=== PATIENT | female | born 2000 | race Caucasian/White ===

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

== ENCOUNTER 2019-10-31 11:14 | Emergency (ER) | payer OTHER ==
[~2019-10-31] VITALS: Ht 162.5 cm; Wt 61.3 kg
[2019-10-31 11:17] VITALS: BP 124/71
--- NOTE | 2019-10-31 11:17 | NUR ---
IRRIGATION OF R EAR BY Emmanuel SCHAFER APRN WITH WARM WATER AND SYRINGE. LG AMOUT OF EAR WAX RETURNED
--- OUTSIDE RECORDS SUMMARY | 2019-10-31 11:18 | XMS REPORT | Continuity of Care Document ---
Author Author [facility] Organization [employer] Address Unknown Phone Unavailable Allergies There is no data. Medications There is no data. 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 Results There is no data. Encounters ACCT No. Visit Date/Time Discharge Status Pt. Type Provider Facility Loc./Unit Complaint [id number] 12/23/2018 12:12:00 019 23:59:59 CLS Outpatient LEONARDO MEJIA MD [facility] RAD OSTEOMALACIA RT FOOT/PA IN OF LT KNEE [id number] 10/31/2019 11:15:[address] Emergency ABHI LOZANO MD [facility] ER L EAR PAIN
[2019-10-31] MEDS ORDERED: AMOX500T2 PO (11:32)
--- NOTE | 2019-10-31 11:33 | ED EENT ---
History of Present Illness General Chief Complaint: Ear Problems Stated Complaint: L EAR PAIN Source: patient Exam Limitations: no limitations History of Present Illness Date Seen by Provider: Oct 31, 2019 Time Seen by Provider: 11:29 Initial Comments Left ear fullness, discomfort, difficulty hearing for the past few days. Timing/Duration: gradual Severity: moderate Location: ear (L) Prearrival Treatment: no prearrival treatment Associated Symptoms: denies symptoms Allergies and Home Medications Patient Home Medication List Home Medication List Reviewed: Yes Review of Systems Review of Systems Constitutional: see HPI Eyes: No Symptoms Reported Ears: See HPI Nose: no symptoms reported Mouth: no symptoms reported Throat: no symptoms reported Respiratory: no symptoms reported Cardiovascular: no symptoms reported Musculoskeletal: no symptoms reported Skin: no symptoms reported Neurological: No Symptoms Reported Hematologic/Lymphatic: No Symptoms Reported Past [id number] Hx Patient Social History Recent Foreign Travel: No Contact w/Someone Who Travel: No Physical Exam Height, Weight, BMI Height: '" Weight: lbs. oz. kg; BMI Method: General Appearance: WD/WN, no apparent distress Eyes: bilateral eye normal inspection, bilateral eye PERRL, bilateral eye EOMI Ears: right ear TM normal; left ear TM red, left ear other (there is a cerumen impaction in the left ear canal. This was irrigated out using a 10 mm syringe attached to a 20-gauge IV catheter using warm 50-50 mixture of water/hydrogen peroxide); bilateral ear auricle normal Mouth/Throat: normal mouth inspection, pharynx normal Neck: non-tender, full range of motion Respiratory: no respiratory distress, no accessory muscle use Neurologic/Psychiatric: alert, normal mood/affect, oriented x 3 Skin: normal color, warm/dry Departure Impression Primary Impression: Impacted cerumen Qualified Codes: H61.22 - Impacted cerumen, left ear Additional Impression: Otitis media Qualified Codes: H66.002 - Acute suppurative otitis media without spontaneous rupture of ear drum, left ear Disposition: 01 HOME, SELF-CARE Condition: Stable Departure-Patient Inst. Decision time for Depature: 11:30 Referrals: SERA BOATENG MD (PCP/Family) Primary Care Physician Patient Instructions: Ear Wax Impaction (DC) Add. Discharge Instructions: 1. Tylenol for pain control 2. Antibiotics as directed. Follow-up with your doctor next week All discharge instructions reviewed with patient and/or family. Voiced understanding. Scripts Amoxicillin (Amoxicillin) 500 Mg Tablet 500 MG PO TID, #14 TAB Prov: RICHY SCHAFER APRN 10/31/19 RICHY SCHAFER APRN Oct 31, 2019 11:33
== END 2019-10-31 11:39 | disposition home or self-care (01) ==
LOC: EDUNIT# 11:14 → ER 11:15
DX: H61.22 Impacted cerumen, left ear (principal); H66.92 Otitis media, unspecified, left ear
CPT/HCPCS: 99282

== ENCOUNTER → 2020-07-05 | Outpatient (CLI) | payer OTHER ==
[~2020-07-05] MED LIST: AMOX500T2 PO
--- NOTE | 2020-07-05 13:00 | Diagnostic Imaging Report ---
EXAMINATION: Left foot radiographs, 3 weightbearing views. COMPARISON: None. HISTORY: 19-year-old female, left foot pain. FINDINGS: There is pes cavus with a calcaneal pitch angle of 32 degrees. There is no identified acute fracture. The joint spaces are well preserved. There is no identified radiopaque foreign body. There is no periosteal reaction. There is no tibiotalar joint effusion. There is flexion at the second proximal interphalangeal joint. IMPRESSION: 1. Pes cavus with calcaneal pitch angle of 32 degrees. 2. Flexion at the second proximal interphalangeal joint. 3. Additional radiographic evaluation of the left foot is unremarkable. Dictated by: Dictated on workstation # [id number]
== END ==
LOC: RAD 10:35
PROVIDERS: ATTEND Orthopaedic Surgery
DX: M79.672 Pain in left foot (principal)
CPT/HCPCS: 73630

== ENCOUNTER → 2022-06-21 | Outpatient (CLI) | payer OTHER ==
--- NOTE | 2022-06-21 13:17 | Diagnostic Imaging Report ---
INDICATION: Sprain of ligament, pain. COMPARISON: None available. TECHNIQUE: Four radiographs of the right tibia and fibula dated 06/21/2022. FINDINGS: 4.7 x 1.9 cm region of sclerosis is noted involving the proximal tibia underlying the tibial spine extending medially. This appears to extend to the articular surface of the tibial plateau. This demonstrates slightly irregular margins. No associated periosteal reaction. No acute fracture or dislocation. No abnormal lytic lesion. No knee joint effusion. No suspicious radiopaque foreign body. No evidence of tarsal coalition. IMPRESSION: Abnormal sclerotic lesion involving the proximal tibia as described above. This is of uncertain etiology. This could relate to postsurgical sclerosis if patient has had surgery at this location. Additional etiologies including bone infarction, bone island, or even potential malignancy should be considered. Recommend clinical correlation. If prior imaging is available for comparison, that would be beneficial. A nuclear medicine bone scan could be performed to evaluate for abnormal osteoblastic activity at this location or elsewhere within the osseous structures. No acute fracture or dislocation. Dictated by: Dictated on workstation # [id number]
== END ==
LOC: RAD FS 09:59
PROVIDERS: ATTEND Nurse Practitioner
DX: M76.811 Anterior tibial syndrome, right leg (principal); S93.491A Sprain of other ligament of right ankle, initial encounter
CPT/HCPCS: 73590